=== PATIENT | female | born 1975 | race African-American/Black ===

== ENCOUNTER 2020-03-26 19:34 | Emergency (ER) | payer SELFPAY ==
[~2020-03-26] VITALS: Ht 157.5 cm; Wt 143.2 kg
[2020-03-26 19:45] VITALS: Ht 157.5 cm; Wt 143.2 kg
[2020-03-26 20:45] LABS: BASOPHILS 0.3 % (0-2); HEMATOCRIT 37.9 % (36.0-48.0); HEMOGLOBIN 11.6 g/dL (12-16); IMMATURE GRANULOCYTES 0.1 % (0-5); LYMPHOCYTES 19.1 % (15-50); MCH 21.6 pg (26.0-34.0); MCHC 30.6 g/dL (31.0-37.0); MCV 70.6 fL (80.0-100.0); MONOCYTES 4.6 % (2-11); NEUTROPHILS 74.9 % (40-80); PLATELET COUNT 317 10x3/uL (130-400); RBC 5.37 10x6/uL (4.00-5.40); RDW 16.7 % (11.5-14.5)
[2020-03-26 21:07] LABS: APTT 27.6 SECONDS (22.8-39.4); INR 0.9 (0.85-1.17); PROTIME 12.1 SECONDS (11.6-15.0)
[2020-03-26 21:12] LABS: CALC OSMOLALITY 272 mosm/kg (275-300); CALCIUM 8.8 mg/dL (8.5-10.1); CARBON DIOXIDE 28.1 mmol/L (21.0-32.0); CHLORIDE - SERUM 105 mmol/L (98-107); CREATININE - SERUM 0.9 mg/dL (0.6-1.3); GLUCOSE 103 mg/dL (74-106); POTASSIUM - SERUM 3.8 mmol/L (3.5-5.1); SODIUM 137 mmol/L (136-145); UREA NITROGEN 11 mg/dL (7-18); eGFR NON AFRICAN AMERICAN 73 mL/min (90-120)
[2020-03-26 21:30] LABS: ALBUMIN 3.3 g/dL (3.4-5.0); ALKALINE PHOSPHATASE 77 U/L (30-120); ALT (SGPT) 29 U/L (10-68); BILIRUBIN - TOTAL 0.13 mg/dL (0.2-1.3); CREATINE KINASE 115 UL (21-215); MAGNESIUM - SERUM 1.9 mg/dL (1.8-2.4); PROTEIN - SERUM 7.4 g/dL (6.4-8.2); TROPONIN-I < 0.017 ng/mL (0.000-0.060)
[2020-03-26 22:00] VITALS: BP 150/69
== END 2020-03-26 22:01 | disposition home or self-care (01) ==
LOC: D.ER 19:34
PROVIDERS: Family Medicine
DX: R07.9 Chest pain, unspecified (principal); S91.112A Laceration without foreign body of left great toe without damage to nail, initial encounter; X58.XXXA Exposure to other specified factors, initial encounter; Y93.9 Activity, unspecified; Y92.9 Unspecified place or not applicable